=== PATIENT | female | born 1985 | race Caucasian/White ===

== ENCOUNTER → 2018-09-27 | Outpatient (CLI) | payer OTHER ==
--- NOTE | 2018-09-27 09:15 | REP ---
Clinical: History of epilepsy and complex partial seizures. Technique: Axial noncontrast images from the skull base to the vertex. Comparison: None. Findings: There is evidence for moderate asymmetric atrophy involving the right cerebral hemisphere with associated volume loss and ventriculomegaly involving the left lateral ventricle. No underlying mass lesion is appreciated. The right hemisphere appears relatively normal. No evidence for mass effect. No extra-axial fluid collection. No acute hemorrhage. Calvarium is intact. Sinuses and mastoid air cells are clear. Impression: Chronic-appearing asymmetric atrophic changes involving the right cerebral hemisphere. No obvious underlying mass effect/mass lesion. Electronically Signed by Ej Dupont MD 09/27/2018 09:06 A
== END ==
LOC: M RAD 08:40
PROVIDERS: ATTEND Psychiatry & Neurology Neurology
DX: G40.209 Localization-related (focal) (partial) symptomatic epilepsy and epileptic syndromes with complex partial seizures, not intractable, without status epilepticus (principal)

== ENCOUNTER → 2020-04-02 | Outpatient (CLI) | payer OTHER | LOC: M LAB 08:39 | PROVIDERS: ATTEND Psychiatry & Neurology Neurology | DX: G43.909 Migraine, unspecified, not intractable, without status migrainosus (principal) ==

== ENCOUNTER → 2020-04-27 | Outpatient (CLI) | payer OTHER ==
[2020-04-27 08:35] LABS: BASO # 0.1 10^3/uL (0.0-0.2); BASO % 0.6 % (0.0-1.0); EOS # 0.3 10^3/uL (0.0-0.5); EOS % 3.3 % (0.0-3.0); HEMATOCRIT 39.1 % (36.0-47.0); HEMOGLOBIN 12.1 g/dl (12.0-15.5); LYMPH # 3.4 10^3/uL (1.5-5.0); LYMPH % 40.4 % (24.0-44.0); MEAN CORPUSCULAR HEMOGLOBIN 28.6 pg (27.0-33.0); MEAN CORPUSCULAR HGB CONC 30.9 g/dl (32.0-36.5); MEAN CORPUSCULAR VOLUME 92.4 fl (80.0-96.0); MONO # 0.6 10^3/uL (0.0-0.8); NEUTROPHILS # 4.1 10^3/uL (1.5-8.5); NEUTROPHILS % 48.5 % (36.0-66.0); PLATELET COUNT, AUTOMATED 226 10^3/uL (150-450); RED BLOOD COUNT 4.23 10^6/uL (4.00-5.40); WHITE BLOOD COUNT 8.5 10^3/uL (4.0-10.0)
[2020-04-27 09:10] LABS: ALBUMIN 3.9 GM/DL (3.2-5.2); ALT/SGPT 19 U/L (12-78); BILIRUBIN,TOTAL 0.3 MG/DL (0.2-1.0); BLOOD UREA NITROGEN 14 MG/DL (7-18); CALCIUM LEVEL 8.9 MG/DL (8.5-10.1); CARBON DIOXIDE LEVEL 26 MEQ/L (21-32); CHLORIDE LEVEL 113 MEQ/L (98-107); GLOMERULAR FILTRATION RATE > 60.0 (>60); GLUCOSE, FASTING 62 MG/DL (70-100); POTASSIUM SERUM 4.6 MEQ/L (3.5-5.1); SODIUM LEVEL 145 MEQ/L (136-145); TOTAL PROTEIN 6.3 GM/DL (6.4-8.2)
[2020-05-03 10:08] LABS: LAMOTRIGINE (LAMICTAL) 4.5 ug/mL (2.0-20.0); TOPIRAMATE LEVEL 4.2 ug/mL (2.0-25.0)
== END ==
LOC: M LAB 07:27
PROVIDERS: ATTEND Psychiatry & Neurology Neurology
DX: G40.89 Other seizures (principal); Z51.81 Encounter for therapeutic drug level monitoring

== ENCOUNTER 2020-09-13 08:21 | Emergency (ER) | payer OTHER ==
[~2020-09-13] VITALS: Ht 162.6 cm; Wt 76.2 kg
[2020-09-13] MEDS ORDERED: LATU20TA (08:43)
[2020-09-13] MEDS ORDERED: ZOLO100T (08:43)
[2020-09-13] MEDS ORDERED: LATU40TA (08:43)
[2020-09-13] MEDS ORDERED: LAMO200T3 (08:43)
[2020-09-13] MEDS ORDERED: MIRT1TAB (08:43)
[2020-09-13] MEDS ORDERED: TOPI50TA9 (08:43)
[2020-09-13] MEDS ORDERED: CLON-589 (08:43)
[2020-09-13] MEDS ORDERED: QUET50TA3 (08:43)
[2020-09-13] MEDS ORDERED: LORazepam 1 MG TAB PO STA (09:28)
[2020-09-13 09:36] LABS: HEMATOCRIT 39.8 % (36.0-47.0); HEMOGLOBIN 12.9 g/dl (12.0-15.5); MEAN CORPUSCULAR HGB CONC 32.4 g/dl (32.0-36.5); MEAN CORPUSCULAR VOLUME 89.4 fl (80.0-96.0); PLATELET COUNT, AUTOMATED 309 10^3/uL (150-450); RED BLOOD COUNT 4.45 10^6/uL (4.00-5.40); WHITE BLOOD COUNT 11.9 10^3/uL (4.0-10.0)
[2020-09-13 10:05] LABS: ATYPICAL LYMPH 6 % (0-5); EOSINOPHILS 2 % (0-3); LYMPHOCYTES 34 % (16-44); MONOCYTES 6 % (0-5); NEUTROPHILS 52 % (28-66)
[2020-09-13 10:06] LABS: PLATELET ESTIMATE NORMAL (NORMAL)
--- NOTE | 2020-09-13 10:12 | REP ---
INDICATION: jaundice COMPARISON: None. TECHNIQUE: Real time scruggs scale ultrasound examination using curved array transducer. FINDINGS: Liver is normal in contour, size, and echogenicity without focal hepatic lesions identified. Pancreas is incompletely evaluated due to interposed bowel gas. The gallbladder demonstrates multiple gallstones and wall thickening to 5.6 mm. No biliary ductal dilatation is appreciated and the common bile duct measures 5.7 mm diameter. Correlation with physical examination is required. Right kidney is normal in reniform shape without hydronephrosis and measures 8.9 x 4.7 x 3.6 cm. No ascites in the visualized right upper quadrant. IMPRESSION: Cholelithiasis and gallbladder wall thickening. Differential diagnosis includes biliary colic and early acute cholecystitis. Clinical/physical correlation is required. <Electronically signed by Ej Dupont > 09/13/20 [id number]
[2020-09-13 10:52] LABS: ALBUMIN 3.3 GM/DL (3.2-5.2); ALT/SGPT 60 U/L (12-78); BILIRUBIN,DIRECT 10.2 MG/DL (0.0-0.2); BLOOD UREA NITROGEN 14 MG/DL (7-18); CALCIUM LEVEL 9.5 MG/DL (8.5-10.1); CARBON DIOXIDE LEVEL 21 MEQ/L (21-32); CHLORIDE LEVEL 113 MEQ/L (98-107); CREATININE FOR GFR 1.12 MG/DL (0.55-1.30); GLOMERULAR FILTRATION RATE 59.6 (>60); GLUCOSE, FASTING 88 MG/DL (70-100); LIPASE 201 U/L (73-393); POTASSIUM SERUM 4.3 MEQ/L (3.5-5.1); SODIUM LEVEL 143 MEQ/L (136-145); TOTAL PROTEIN 6.1 GM/DL (6.4-8.2)
[2020-09-13 11:02] LABS: RSV AMPLIFICATION NEGATIVE (NEGATIVE)
[2020-09-13 11:12] LABS: HEPATITIS B SURFACE ANTIGEN NEGATIVE (NEGATIVE)
[2020-09-13 11:24] LABS: INR 1.11; PROTHROMBIN TIME 14.5 SECONDS (12.5-14.3)
[2020-09-13 11:40] LABS: HEPATITIS B CORE ANTIBODY IGM NEGATIVE (NEGATIVE)
[2020-09-13 11:42] LABS: HEPATITIS A ANTIBODY IGM NEGATIVE (NEGATIVE)
[2020-09-13] MEDS ORDERED: NS 1,000 ML IV SCH (13:40)
[2020-09-13] MEDS ORDERED: LAMO100T80 PO (15:50)
[2020-09-13 16:55] VITALS: BP 118/75
== END 2020-09-13 16:58 | disposition home or self-care (01) ==
LOC: M ED 08:21
DX: R17 Unspecified jaundice (principal); T50.995A Adverse effect of other drugs, medicaments and biological substances, initial encounter